=== PATIENT | male | born 1985 | race Caucasian/White ===

== ENCOUNTER 2017-07-07 08:26 | Emergency (ER) | payer BC ==
[~2017-07-07] VITALS: Ht 182.9 cm; Wt 90.7 kg
--- NOTE | 2017-07-07 09:03 | PHYS DOC ---
Past History Past Medical History: No Pertinent History Past Surgical History: Appendectomy, Other Alcohol Use: Occasionally Drug Use: None Adult General Chief Complaint Chief Complaint: SYNCOPE HPI HPI Patient is a 31 year old M who presents after a syncopal episode. Luis states that he rolled out of bed, walked to the bathroom, began urinating when he became dizzy. He then sat down and proceeded to "pass out". He did hit the bridge of his nose and his upper lip causing abrasions to both. He denies headache, blurry vision, nausea or any other associated symptoms. He did have a vasectomy yesterday and has been taking pain medication since that time. He feels that he has not been eating or drinking as well normal since his surgery. He denies any other associated symptoms at this time. Review of Systems Review of Systems Constitutional: Denies fever or chills [] Eyes: Denies change in visual acuity, redness, or eye pain [] HENT: Denies nasal congestion or sore throat [] Respiratory: Denies cough or shortness of breath [] Cardiovascular: No additional information not addressed in HPI [] GI: Denies abdominal pain, nausea, vomiting, bloody stools or diarrhea [] : Denies dysuria or hematuria [] Musculoskeletal: Denies back pain or joint pain [] Integument: Denies rash Neurologic: Denies headache, focal weakness or sensory changes [] Endocrine: Denies polyuria or polydipsia [] Family History Family History Noncontributory Current Medications Current Medications Medications reviewed Allergies Allergies No known allergies Physical Exam Physical Exam Constitutional: Well developed, well nourished, no acute distress, non-toxic appearance. [] HENT: Normocephalic, bilateral external ears normal, oropharynx moist, no oral exudates, nose normal. []Abrasion over the bridge of the nose which is hemostatic Eyes: PERRLA, EOMI, conjunctiva normal, no discharge. [] Neck: Normal range of motion, no tenderness, supple, no stridor. [] Cardiovascular:Heart rate regular rhythm, no murmur [] Lungs & Thorax: Bilateral breath sounds clear to auscultation [] Abdomen: Bowel sounds normal, soft, no tenderness, no masses, no pulsatile masses. [] Skin: Warm, dry, no erythema, no rash. [] Back: No tenderness, no CVA tenderness. [] Extremities: No tenderness, no cyanosis, no clubbing, ROM intact, no edema. [] Neurologic: Alert and oriented X 3, normal motor function, normal sensory function, no focal deficits noted. [] Psychologic: Affect normal, judgement normal, mood normal. [] Current Patient Data Vital Signs Vital Signs Date Time Temp Pulse Resp B/P (MAP) Pulse Ox O2 Delivery O2 Flow Rate FiO2 07/07/17 08:30 97.8 73 22 98 Room Air EKG EKG Normal sinus rhythm, no ectopy, no ST changes, QRS intervals normal. Radiology/Procedures Radiology/Procedures [] Course & Med Decision Making Course & Med Decision Making Pertinent Labs and Imaging studies reviewed. (See chart for details) Further imaging and labs were declined at this time. His symptoms are most consistent with vasovagal syncope. Dragon Disclaimer Dragon Disclaimer This chart was dictated in whole or in part using Voice Recognition software in a busy, high-work load, and often noisy Emergency Department environment. It may contain unintended and wholly unrecognized errors or omissions. Departure Departure: Impression: Primary Impression: Syncope Disposition: HOME, SELF-CARE Condition: STABLE Referrals: ROBERTO DAWSON (PCP) Patient Instructions: Syncope Additional Instructions: Luis was seen in the emergency department after "passing out." No emergency medical condition was found on history or physical exam. He did have a normal EKG. Is advised to return to the emergency room if he develops new or worsening symptoms. He is advised follow-up with his primary care doctor as needed for further management. Problem Qualifiers Primary Impression: Syncope Syncope type: vasovagal syncope Qualified Codes: R55 - Syncope and collapse MAULIK SINGH MD Jul 07, 2017 09:03
[2017-07-07 09:27] VITALS: BP 117/83
--- NOTE | 2017-07-07 09:41 | EKG ---
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
== END 2017-07-07 09:29 | disposition home or self-care (01) ==
LOC: ER 08:26
DX: R55 Syncope and collapse (principal); S00.31XA Abrasion of nose, initial encounter; S00.511A Abrasion of lip, initial encounter; W06.XXXA Fall from bed, initial encounter; Y93.01 Activity, walking, marching and hiking; Y99.8 Other external cause status; Y92.002 Bathroom of unspecified non-institutional (private) residence as the place of occurrence of the external cause
CPT/HCPCS: 93005; 99284-25

== ENCOUNTER 2017-09-20 23:59 | Emergency (ER) | payer BC ==
[~2017-09-20] VITALS: Ht 182.9 cm; Wt 90.7 kg
[2017-09-21] MEDS ORDERED: HYDROcodone/APAP 5/325MG 1 TAB TABLET PO ONE (01:45)
[2017-09-21] MEDS ORDERED: PROMETHAZINE 25 MG in IV NORMAL SALINE 50ML 50 ML IV PRN (01:45)
[2017-09-21] MEDS ORDERED: ONDANSETRON ODT 4 MG TAB.RAPDIS PO ONE (01:45)
[2017-09-21] MEDS ORDERED: FAMOTIDINE 20 MG/2 ML VIAL IVP ONE (01:45)
[2017-09-21] MEDS ORDERED: IV NORMAL SALINE 1,000ML 1,000 ML IV SCH (01:45)
[2017-09-21] MEDS ORDERED: DIPHTH,PERTUSS(ACELL),TET TOX 0.5 ML DISP.SYRIN. VAX IM ONE (01:45)
[2017-09-21] MEDS ORDERED: ONDANSETRON PF 4 MG/2 ML VIAL. ONE (01:55)
[2017-09-21] MEDS ORDERED: ONDANSETRON PF 4 MG/2 ML VIAL. IV ONE (02:15)
[2017-09-21 02:31] LABS: HEMOGLOBIN ISTAT 16.7 gm/dL; POTASSIUM ISTAT 4.7 mmol/L (3.5-5.0)
[2017-09-21 02:51] VITALS: BP 119/66
[2017-09-21] MEDS ORDERED: ONDA4TAB10 PO (02:53)
[2017-09-21] MEDS ORDERED: PROM25SU32 RC (02:53)
--- NOTE | 2017-09-21 02:54 | PHYS DOC ---
General Chief Complaint: NAUSEA/VOMITING/DIARRHEA Stated Complaint: N/V/D Time Seen by MD: 01:05 Source: patient, family Exam Limitations: no limitations Problems: History of Present Illness Initial Comments Patient is a 31-year-old male who comes to the ED with his spouse for vomiting and diarrhea. Patient states that since this morning he's had abdominal cramping with numerous episodes of nonbloody emesis and loose watery stools. He denies any focal abdominal pain complaints, he's had chills and sweats and this evening has started to feel very weak and dizzy with ambulation with a global headache. No measured fevers no neck stiffness or rash. No bad food exposure or travel he' s had sick contacts with similar symptoms. On arrival patient is retching and ill-appearing, his vital signs are stable. Timing/Duration: other Severity: severe Modifying Factors: worse with eating Associated Symptoms: headaches, malaise, nausea/vomiting, weakness Allergies: Coded Allergies: No Known Drug Allergies (Unverified , 07/07/17) Past Medical History Medical History: no pertinent history Surgical History: noncontributory Social History Smoker: non-smoker Alcohol: none Drugs: none Review of Systems Constitutional: chills, diaphoresis, denies fever, malaise Respiratory: denies cough, denies shortness of breath, denies wheezing Cardiovascular: denies chest pain, denies palpitations, denies syncope Gastrointestinal: see HPI Genitourinary: denies dysuria, denies frequency, denies hematuria Musculoskeletal: denies back pain, denies joint swelling, muscle pain, denies neck pain Psychiatric/Neurological: headache, denies numbness, denies paresthesia, weakness Physical Exam General Appearance: WD/WN, moderate distress Ear, Nose, Throat: hearing grossly normal, normal ENT inspection, normal pharynx (dry membranes) Neck: non-tender, supple Respiratory: normal breath sounds, no respiratory distress Cardiovascular: normal peripheral pulses, regular rate, rhythm Gastrointestinal: soft (nondistended generalized muscle tenderness without focality negative Nguyen negative McBurney bowel sounds normal) Extremities: non-tender, normal inspection 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 Patient is feeling much better no further vomiting. He hasn't tried to eat or drink anything steering he might start vomiting again but does request discharge home. I discussed [id number] prescription medications as well as indications for return to the department. Discussed time off of work and clear liquid diet he and his spouse expressed agreement and understanding. Departure Time of Disposition: 02:53 Disposition: 01 HOME, SELF-CARE Diagnosis: gastroenteritis likely viral Condition: STABLE Patient Instructions: Viral Gastroenteritis, [id number] Additional Instructions: Please review the patient education materials given by ED staff. Off work through September 22, note given. Clear liquids, advance diet slowly as tolerated. Aggressive hydration with Gatorade or water. [id number] Tylenol as needed. Prescription: Zofran ODT, Phenergan [place] Follow-up with your doctor in 3-5 days if not better. Return to ED with new or changing symptoms. SHANEL FRANCIS DO Sep 21, 2017 02:54
== END 2017-09-21 03:03 | disposition home or self-care (01) ==
LOC: ER 23:59
DX: K52.9 Noninfective gastroenteritis and colitis, unspecified (principal); R42 Dizziness and giddiness
CPT/HCPCS: 80047; 96365; 96375; 99284; J2405; J2550; S0028; J7030

== ENCOUNTER 2018-01-20 16:49 | Emergency (ER) | payer BC ==
[~2018-01-20] VITALS: Ht 182.9 cm; Wt 96.2 kg
[~2018-01-20 16:49] MED LIST: ONDA4TAB10 PO; PROM25SU32 RC
[2018-01-20] MEDS ORDERED: LIDO:MAALOX 1:1 20 ML SINGLE DOSE. PO ONE (17:15)
[2018-01-20] MEDS ORDERED: LIDOCAINE PO (17:49)
--- NOTE | 2018-01-20 17:49 | PHYS DOC ---
Past History Past Medical History: Other Past Surgical History: Appendectomy, Other Alcohol Use: Occasionally Drug Use: None Adult General Chief Complaint Chief Complaint: SWALLOWED FORIEGN BODY HPI HPI 32-year-old male patient state he was eating fish and felt a bone in his throat and spit out his food with having a fish bone in the food. Patient states he has feeling of something in his throat and vomited 3 times since noon without problems with swallowing his saliva. Patient rated his pain 1 and states he was able to swallow liquids but still had foreign body sensation in his throat. Review of Systems Review of Systems Constitutional: Denies fever or chills [] Eyes: Denies change in visual acuity, redness, or eye pain [] HENT: Denies nasal congestion or sore throat [] Respiratory: Denies cough or shortness of breath [] Cardiovascular: No additional information not addressed in HPI [] GI: Denies abdominal pain, nausea, vomiting, bloody stools or diarrhea [] : Denies dysuria or hematuria [] Musculoskeletal: Denies back pain or joint pain [] Integument: Denies rash or skin lesions [] Neurologic: Denies headache, focal weakness or sensory changes [] Endocrine: Denies polyuria or polydipsia [] All other systems were reviewed and found to be within normal limits, except as documented in this note. Current Medications Current Medications Current Medications Medications (Trade) Dose Ordered Sig/Sol Start Time Stop Time Status Last Admin Dose Admin Multi-Ingredient Mouthwash/Gargle (Gi Cocktail) 20 ml 1X ONCE 01/20/18 17:15 01/20/18 17:16 DC 01/20/18 17:36 20 ML Allergies Allergies Allergies Coded Allergies Type Severity Reaction Last Updated Verified No Known Drug Allergies 07/07/17 No Physical Exam Physical Exam Constitutional: Well developed, well nourished, no acute distress, non-toxic appearance. [] HENT: Normocephalic, atraumatic, bilateral external ears normal, oropharynx moist, no oral exudates, nose normal. [] Eyes: PERRLA, EOMI, conjunctiva normal, no discharge. [] Neck: Normal range of motion, no tenderness, supple, no stridor. [] Cardiovascular:Heart rate regular rhythm, no murmur [] Lungs & Thorax: Bilateral breath sounds clear to auscultation [] Abdomen: Bowel sounds normal, soft, no tenderness, no masses, no pulsatile masses. [] Skin: Warm, dry, no erythema, no rash. [] Back: No tenderness, no CVA tenderness. [] Extremities: No tenderness, no cyanosis, no clubbing, ROM intact, no edema. [] Neurologic: Alert and oriented X 3, normal motor function, normal sensory function, no focal deficits noted. [] Psychologic: Affect normal, judgement normal, mood normal. [] Current Patient Data Vital Signs Vital Signs Date Time Temp Pulse Resp B/P (MAP) Pulse Ox O2 Delivery O2 Flow Rate FiO2 01/20/18 17:02 98.7 82 20 97 Room Air EKG EKG [] Radiology/Procedures Radiology/Procedures [] Course & Med Decision Making Course & Med Decision Making Evaluation of patient in ER showed 31-year-old female patient with foreign body sensation in his throat. Patient had unremarkable physical exam and treated with GI cocktail and prescription for viscous lidocaine was given. Dragon Disclaimer Dragon Disclaimer This electronic medical record was generated, in whole or in part, using a voice recognition dictation system. Departure Departure: Impression: Primary Impression: Sensation of foreign body in esophagus Disposition: HOME, SELF-CARE (At 1748) Condition: STABLE Referrals: PCP,NO (PCP) Patient Instructions: Foreign Body Additional Instructions: Drink plenty of liquids Follow-up with your primary care physician in 3 days Return to ER if not getting better Scripts [Viscus Lidocain] No Conflict Check 10 ML PO QID Y for PAIN, #120 ML Prov: JEAN-PAUL TRUJILLO MD 01/20/18 JEAN-PAUL TRUJILLO MD January 20, 2018 17:49
[2018-01-20 18:10] VITALS: BP 135/82
--- NOTE | 2018-01-21 08:43 | RAD ---
History: Possible fishbone stuck in throat. Comparison: None. Findings: AP and lateral views of the neck with attention to the soft tissues. No soft tissue gas collection is identified. No focal soft tissue swelling is seen. No radiopaque foreign body is appreciated. Airway is patent. Impression: No acute radiographic abnormality identified. Electronically signed by: Fei Huffman MD (01/21/2018 8:40 AM) [facility]
== END 2018-01-20 18:10 | disposition home or self-care (01) ==
LOC: ER 16:49
DX: R09.89 Other specified symptoms and signs involving the circulatory and respiratory systems (principal)
CPT/HCPCS: 70360; 99284

== ENCOUNTER 2021-01-11 00:25 | Emergency (ER) | payer BC ==
[~2021-01-11] VITALS: Ht 182.9 cm; Wt 90.7 kg
[~2021-01-11 00:25] MED LIST changes: +LIDOCAINE PO
[2021-01-11] MEDS ORDERED: LIDOCAINE/EPI/TETRACAINE TOPICAL GEL 3 ML. TP ONE ×2 (00:38→01:00)
[2021-01-11] MEDS ORDERED: MORPHINE SULFATE 4 MG/ML DISP.SYRIN. IM ONE (01:00)
--- NOTE | 2021-01-11 01:12 | PHYS DOC ---
Past History Past Medical History: No Pertinent History Past Surgical History: Other Additional Past Surgical Histo: RFA back Alcohol Use: Occasionally Adult General Chief Complaint Chief Complaint: MECHANICAL FALL HPI HPI Patient is a 35-year-old male, who presents to the emergency department with a head laceration. States he was at the bar, drinking some beers and as he was walking out tripped and fell backwards and hit his head. Denies loss of consciousness, changes in vision, neck pain, chest pain, shortness of breath, abdominal pain, nausea, vomiting. Denies any trouble ambulating. Denies any numbness/weakness/tingling. States the top of his head where he has a laceration hurts, 5 out of 10, dull and achy in nature. 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 Review of Systems Review of Systems Review of systems otherwise unremarkable except noted in HPI Current Medications Current Medications Current Medications Medications (Trade) Dose Ordered Sig/Sol Start Time Stop Time Status Last Admin Dose Admin Lidocaine/ Epinephrine (Let (Bptv-Lucpisl-Wodiz) Gel) 3 ml 1X ONCE 01/11/21 01:00 01/11/21 01:01 DC 01/11/21 00:53 3 ML Morphine Sulfate (Morphine 4mg Syringe) 4 mg 1X ONCE 01/11/21 01:00 01/11/21 01:01 DC 01/11/21 00:52 4 MG Allergies Allergies Allergies Coded Allergies Type Severity Reaction Last Updated Verified No Known Drug Allergies 01/11/21 No Physical Exam Physical Exam Constitutional: Well developed, well nourished, no acute distress, non-toxic appearance. [] HENT: Normocephalic, atraumatic, bilateral external ears normal, oropharynx moist, no oral exudates, nose normal. [] Eyes: PERRLA, EOMI, conjunctiva normal, no discharge. [] Neck: Normal range of motion, no tenderness, supple, Cardiovascular:Heart rate regular rhythm, no murmur [] Lungs & Thorax: Bilateral breath sounds clear to auscultation [] Abdomen: soft, no tenderness, no masses, no pulsatile masses. [] Skin: Warm, dry, no erythema, no rash. [] Back: No midline tenderness through the entire spine, no obvious deformities, step-offs or bruising Extremities: No tenderness, ROM intact, no edema. [] Neurologic: Alert and oriented X 3, normal motor function, normal sensory function, cranial nerves intact, able to ambulate without issue no focal deficits noted. [] Psychologic: Affect normal, judgement normal, mood normal. [] Current Patient Data Vital Signs Vital Signs Date Time Temp Pulse Resp B/P (MAP) Pulse Ox O2 Delivery O2 Flow Rate FiO2 01/11/21 00:52 18 01/11/21 00:31 98.3 90 138/75 (96) 95 EKG EKG [] Radiology/Procedures Radiology/Procedures []Comparison: None. Clinical Indication: Reason: fall on ETOH / Spl. Instructions: CUT ON UPPER LEFT FOREHEAD / History: , HEAD AND NECK PAIN Technical factors: Contiguous 5 mm axial images of the head were obtained from the skullbase to the vertex. No contrast was administered. In addition, 3 mm axial images of the cervical spine were acquired with thin cut coronal and sagittal reconstructions. One or more of the following individualized dose reduction techniques were utilized for this examination: 1. Automated exposure control 2. Adjustment of the mA and/or kV according to patient size 3. Use of iterative reconstruction technique Findings head: Ventricles and sulci are within normal limits for age. No midline shift or mass effect. Brain parenchyma is of normal attenuation. No hemorrhage or extra-axial collection. Posterior fossa and brainstem unremarkable. Mild mucosal thickening of the bilateral ethmoid and maxillary sinus. Mastoid air cells are clear. No apparent calvarial abnormality. IMPRESSION HEAD: . No evidence of acute intracranial hemorrhage or mass. 2. Mild sinus disease. Findings cervical spine: Images were acquired from the skull base to T1. There is straightening of the normal cervical lordosis, otherwise sagittal alignment is anatomic. Vertebral body heights are maintained. No prevertebral soft tissue swelling. Posterior elements are intact. No fractures are identified. No segment spondylotic changes. Bony canal and foramen are adequate. No significant soft tissue abnormality. Images of the lung apices are clear. IMPRESSION CERVICAL SPINE: No evidence of fracture or malalignment. Electronically signed by: Fei Hester MD (01/11/2021 1:34 AM) [facility] Patient had an approximately 8 cm linear laceration on the top of the scalp. Wound extensively cleaned with sterile water. L ET placed for topical anesthesia. Anesthesia achieved. 7 eugene placed successfully. Wound cleaned again. Heart Score C/O Chest Pain: No Risk Factors: Risk Factors: DM, Current or recent (<one month) smoker, HTN, HLP, family history of CAD, obesity. Risk Scores: Risk Factors: DM, Current or recent (<one month) smoker, HTN, HLP, family history of CAD, obesity. Course & Med Decision Making Course & Med Decision Making Patient is a 35-year-old male who presents with a scalp laceration after falling from standing Vital signs not concerning. Physical exam noted above. Patient kept in c- collar CT head and C-spine imaged. Patient up-to-date on tetanus vaccination. Scalp laceration cleaned then anesthetized with LET. Repaired with eugene. Cleaned again. Discussed findings with family and advised to follow-up with primary care in 7 to 10 days for wound check and staple removal. Advised [place] to the ED if they cannot get into their primary care or they have any new or concerning symptoms. Family grateful, verbalized understanding and agreed with plan of discharge. [] Dragon Disclaimer Dragon Disclaimer This electronic medical record was generated, in whole or in part, using a voice recognition dictation system. Departure Departure: Impression: Primary Impression: Fall Additional Impression: Laceration of head Disposition: HOME / SELF CARE / HOMELESS Condition: GOOD Referrals: PCP,NO (PCP) Patient Instructions: Laceration Care, Adult, Staple Wound Closure, [id number] Additional Instructions: Please read all of the attached information carefully. You can use Tylenol, ibuprofen and ice as needed at home for pain control. As discussed do not submerge your wound in water for the next 36 hours. Please follow-up with your primary care physician in 7 to 10 days for a wound check and staple removal. Please come back to the emergency department immediately with any new or concerning symptoms or if you cannot get into your primary care for your follow- up visit and staple removal. Problem Qualifiers SURESH SHIN MD Jan 11, 2021 01:12
--- NOTE | 2021-01-11 01:37 | RAD ---
CT HEAD AND C-SPINE WO dated 01/11/2021 1:07 AM. Comparison: None. Clinical Indication: Reason: fall on ETOH / Spl. Instructions: CUT ON UPPER LEFT FOREHEAD / History: , HEAD AND NECK PAIN Technical factors: Contiguous 5 mm axial images of the head were obtained from the skullbase to the v ertex. No contrast was administered. In addition, 3 mm axial images of the cervical spine were acquir ed with thin cut coronal and sagittal reconstructions. One or more of the following individualized dose reduction techniques were utilized for this examinat ion: 1. Automated exposure control 2. Adjustment of the mA and/or kV according to patient size 3. Use of iterative reconstruction technique Findings head: Ventricles and sulci are within normal limits for age. No midline shift or mass effect. Brain parench yma is of normal attenuation. No hemorrhage or extra-axial collection. Posterior fossa and brainstem unremarkable. Mild mucosal thickening of the bilateral ethmoid and maxillary sinus. Mastoid air cells are clear. No apparent calvarial abnormality. IMPRESSION HEAD: . No evidence of acute intracranial hemorrhage or mass. 2. Mild sinus disease. Findings cervical spine: Images were acquired from the skull base to T1. There is straightening of the normal cervical lordosi s, otherwise sagittal alignment is anatomic. Vertebral body heights are maintained. No prevertebral s oft tissue swelling. Posterior elements are intact. No fractures are identified. No segment spondylotic changes. Bony canal and foramen are adequate. No significant soft tissue abnor mality. Images of the lung apices are clear. IMPRESSION CERVICAL SPINE: No evidence of fracture or malalignment. Electronically signed by: Fei Hester MD (01/11/2021 1:34 AM) [facility]
[2021-01-11] MEDS ORDERED: oxyCODONE/APAP 5/325 1 TAB TABLET ONE (01:50)
[2021-01-11 01:51] VITALS: BP 136/84
[2021-01-11] MEDS ORDERED: oxyCODONE/APAP 5/325 1 TAB TABLET PO ONE (02:15)
== END 2021-01-11 01:58 | disposition home or self-care (01) ==
LOC: ER 00:25 → MERGE 00:25 → ER 01:58
DX: S01.01XA Laceration without foreign body of scalp, initial encounter (principal); W01.0XXA Fall on same level from slipping, tripping and stumbling without subsequent striking against object, initial encounter; Y93.01 Activity, walking, marching and hiking; Y92.89 Other specified places as the place of occurrence of the external cause; Y99.8 Other external cause status
CPT/HCPCS: 12004; 70450; 72125; 96372; 99285; J2270